=== PATIENT | female | born 2000 | race Caucasian/White ===

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

== ENCOUNTER 2018-11-03 01:12 | Emergency (ER) | payer MEDICAID, OTHER ==
[~2018-11-03] VITALS: Ht 160 cm; Wt 56.3 kg
[~2018-11-03 01:12] MED LIST changes: +IBUP-1561 PO; -IBUP400T22 PO; -NAPR-260 PO; +NAPR-985 PO
[2018-11-03 01:19] VITALS: BP 108/59; PULSE 74; RESP 18; Ht 160 cm; Wt 56.3 kg
--- NOTE | 2018-11-03 03:30 | ERD ---
ER Documentation Chief Complaint Chief Complaint shakey w/FLORES just few hrs ago HPI Patient is a 17 years old female with no known PMHx presenting to the clinic for shaky sensation and mild headache x few hours ago while at work. Patient reports going home and trying to sleep when she felt discomfort and mild SOB. Patient denies chest pain, fever, chills, night sweats, cough, nausea, emesis, abdominal pain, diarrhea, constipation, hematochezia, melena. Patient denies taking OTC medication. ROS All systems reviewed and are negative except as per history of present illness. Medications Home Meds Active Scripts Naproxen* (Naprosyn*) 500 Mg Tablet, 500 MG PO BID PRN for PAIN AND/OR INFLAMMATION, #30 TAB Prov:SOL LEARY PA-C 07/20/16 Phenazopyridine Hcl* (Pyridium*) 100 Mg Tab, 100 MG PO TID for 2 Days, #6 TAB Prov:JACOB PERKINS DO 04/21/16 Sulfamethoxazole-Trimethoprim* (Bactrim* DS) 800-160 Mg Tab, 1 TAB PO BID for 7 Days, TAB Prov:JACOB PERKINS DO 04/21/16 Nitrofurantoin Monohyd Macrocr* (Macrobid*) 100 Mg Capsr, 100 MG PO BID for 5 Days, CAP Prov:LAURO JADE NP 04/14/16 Acetaminophen* (Tylenol*) 325 Mg Tablet, 2 TAB PO Q8 PRN for PAIN AND OR ELEVATED TEMP, #20 TAB Prov:TOMMY BANGURA PA-C 03/12/16 Naproxen* (Naprosyn*) 500 Mg Tablet, 500 MG PO BID PRN for PAIN AND/OR INFLAMMATION, #30 TAB Prov:TOMMY BANGURA PA-C 03/12/16 Ibuprofen* (Motrin*) 400 Mg Tab, 400 MG PO Q6, #30 TAB Prov:URBANO ALLAN 03/11/16 Allergies Allergies: Coded Allergies: No Known Allergy (Unverified , 04/21/16) PMhx/Soc Medical and Surgical Hx: pt denies Medical Hx, pt denies Surgical Hx History of Surgery: No Anesthesia Reaction: No Hx Neurological Disorder: No Hx Respiratory Disorders: No Hx Cardiac Disorders: No Hx Psychiatric Problems: No Hx Miscellaneous Medical Probl: No Hx Alcohol Use: No Hx Substance Use: No Hx Tobacco Use: No Smoking Status: Never smoker FmHx Family History: No diabetes, No coronary disease, No other Physical Exam Vitals Vital Signs Date Temp Pulse Resp B/P (MAP) Pulse Ox O2 O2 Flow FiO2 Time Delivery Rate 11/03/18 97.6 74 18 108/59 99 01:19 (75) Physical Exam Const: No acute distress. No tremor noticed. Head: Atraumatic Eyes: Normal Conjunctiva ENT: Normal External Ears, Nose and Mouth. Neck: Full range of motion. No meningismus. Resp: Clear to auscultation bilaterally Cardio: Regular rate and rhythm, no murmurs Abd: Soft, non tender, non distended. Normal bowel sounds Skin: No petechiae or rashes Back: No midline or flank tenderness Ext: No cyanosis, or edema Neur: Awake and alert Psych: Normal Mood and Affect Procedures/MDM Patient was seen and evaluated for shakiness. EKG showed NSR without ischemia or STEMI. No further workup required due to an unremarkable physical exam. Low suspicion for sepsis, pneumonia, and [place]. Patient is most likely experiencing nervousness without complications. Patient is stable and ready for discharge. F/U with PCP. Departure Diagnosis: Primary Impression: Episode of shaking Additional Impression: Nervousness Condition: Stable Patient Instructions: Anxiety Reaction Referrals: [facility] Additional Instructions: Patient advised to return to the ED immediately for new or worsening symptoms. Patient advised to follow up with primary care provider in the next 24-48 hours. Patient verbalized understanding and agrees with treatment plan and course of action. If patient has no primary care they may follow up with [facility] + [facility] [address] [place] [id number] or [facility] [address] [place] [address] or [facility] [address] [place] [address] RICO LAMA PA-C Nov 03, 2018 03:30
== END 2018-11-03 03:58 | disposition home or self-care (01) ==
LOC: FTE 01:12
DX: R25.1 Tremor, unspecified (principal); R45.0 Nervousness; R06.02 Shortness of breath
CPT/HCPCS: 93005